=== PATIENT | female | born 1960 ===

== ENCOUNTER → 2023-08-16 | Outpatient (CLI) | payer OTHER | LOC: COL.RAD 08-13 15:23 | DX: Z02.71 Encounter for disability determination (principal); M16.11 Unilateral primary osteoarthritis, right hip; Z96.642 Presence of left artificial hip joint ==

== ENCOUNTER 2023-08-27 14:35 | Emergency (ER) | payer OTHER ==
[~2023-08-27] VITALS: Ht 160 cm; Wt 83.2 kg
[2023-08-27 14:57] VITALS: TEMP 98.6
[2023-08-27] MEDS ORDERED: NS 1,000 ML IV ONE ×2 (15:45→16:45)
[2023-08-27 16:17] LABS: BASO # 0.1 K/mm3 (0.0-0.2); BASO % 0.9 % (0.0-2.0); EOS # 0.2 K/mm3 (0.0-0.7); EOS % 3.2 % (0.0-4.0); GRAN # 3.8 K/mm3 (1.4-6.5); GRAN % 58.2 % (42.2-75.2); HEMATOCRIT 43.2 % (37.0-47.0); HEMOGLOBIN 14.2 g/dl (12.5-16.0); LYMPH # 2.1 K/mm3 (1.2-3.4); LYMPH % 32.1 % (20.0-51.0); MEAN CELL VOLUME 83 fl (80.0-100.0); MEAN CORPUSCULAR HEMOGLOBIN 27 pg (27-31); MEAN CORPUSCULAR HGB CONC 33 g/dl (33.0-37.0); MEAN PLATELET VOLUME 10.5 fl (7.4-10.4); MONO # 0.3 K/mm3 (0.1-0.6); MONO % 5.1 % (1.7-9.3); PLATELET COUNT 153 K/mm3 (130-400); RED BLOOD COUNT 5.23 M/mm3 (4.10-5.30); REDCELL DISTRIBUTION WIDTH-CV 14.4 % (11.5-14.5)
[2023-08-27 16:20] LABS: PH 5.5 (5.0-8.5); URINE APPEARANCE CLEAR (CLEAR/HAZY); URINE BLOOD NEGATIVE (NEGATIVE); URINE COLOR YELLOW (YELLOW); URINE GLUCOSE 3+ (NEGATIVE); URINE KETONE NEGATIVE (NEGATIVE); URINE NITRATE NEGATIVE (NEGATIVE); URINE PROTEIN(semi-quant) NEGATIVE (NEGATIVE); URINE UROBILINOGEN 0.2 E.U/dL (0.2-1.0)
[2023-08-27 16:25] LABS: COLLECTION METHOD CLEAN CATCH
[2023-08-27 16:28] LABS: ACETONE,SERUM NEGATIVE
[2023-08-27] MEDS ORDERED: Insulin Regular Human (NovoLIN R/HumuLIN R) IV ONE (16:30)
[2023-08-27 16:36] LABS: ALANINE AMINOTRANSFERASE 13 U/L (0-55); ALKALINE PHOSPHATASE 74 U/L (40-150); ANION GAP 10 mmol/L (7-16); AST,SGOT 15 U/L (5-34); BILIRUBIN,TOTAL 0.2 mg/dL (0.2-1.2); BLOOD UREA NITROGEN 14 mg/dL (10-20); CHLORIDE 101 mEq/L (98-107); CREATININE, serum 0.87 mg/dL (0.57-1.11); LIPASE 48 U/L (8-78); POTASSIUM 4.3 mEq/L (3.5-4.5); SODIUM 133 mEq/L (136-145); TOTAL PROTEIN 6.9 g/dl (6.2-8.1)
[2023-08-27 16:38] LABS: GLUCOSE 528 mg/dL (70-99)
[2023-08-27] MEDS ORDERED: GLUCOPHAGE500 MG/TAB PO ×2 (18:20→18:28)
[2023-08-27] MEDS ORDERED: CANA300T PO (18:28)
[2023-08-27] MEDS ORDERED: GLUCOTROL10 MG PO (18:28)
[2023-08-27 19:34] VITALS: BP 117/68; PULSE 82
== END 2023-08-27 19:35 | disposition home or self-care (01) ==
LOC: COL.ER 14:35
PROVIDERS: Nurse Practitioner Primary Care
DX: Z76.0 Encounter for issue of repeat prescription (principal); E11.9 Type 2 diabetes mellitus without complications
CPT/HCPCS: J1815; J7030